=== PATIENT | male | born 1990 | race Caucasian/White ===

== ENCOUNTER 2020-07-09 05:49 | Outpatient (RCR) | payer OTHER ==
[~2020-07-09] VITALS: Ht 175.3 cm; Wt 81.8 kg
[2020-07-09] MEDS ORDERED: VILA20TA PO (14:40)
[2020-07-09] MEDS ORDERED: OMEP20TA7 PO (14:40)
[2020-07-09] MEDS ORDERED: VILA40TA PO (14:40)
== END 2020-07-09 14:43 | disposition home or self-care (01) ==
LOC: PREOP 05:49
PROVIDERS: ATTEND Otolaryngology Otolaryngology/Facial Plastic Surgery
DX: Z01.818 Encounter for other preprocedural examination (principal)

== ENCOUNTER 2020-07-17 06:47 | Day surgery (SDC) | payer OTHER ==
[~2020-07-17] VITALS: Ht 175.3 cm; Wt 81.8 kg
[2020-07-17] VITALS (10 sets, daily range): BP systolic 116–149; BP diastolic 73–100
[~2020-07-17 06:47] MED LIST: GLYCOPYRROLATE 0.2 MG/ML (ROBINUL) 2 ML VIAL ONE; LIDOCAINE PF 2% 5 ML (XYLOCAINE) VIAL ONE; MIDAZOLAM 2 MG/2 ML (VERSED) VIAL ONE; NEOSTIGMINE 3 MG/3 ML VIAL ONE; OMEP20TA7 PO; ONDANSETRON 4 MG/2 ML (SDV) Z0FRAN ONE; SEVOFLURANE (ULTANE) 15 ML INHAL SOLN ONE; VILA20TA PO; VILA40TA PO; fentaNYL INJECTION 100 MCG/2 ML AMP ONE; proPOfol 200 MG/20 ML (DIPRIVAN) VIAL IV ONE
[2020-07-17] MEDS ORDERED: COCAINE HCL 4% 2 ML SYR ONE (06:55)
[2020-07-17] MEDS ORDERED: NS IV 500 ML 500 ML ONE (06:56)
[2020-07-17] MEDS ORDERED: PHENYLEPHRINE 0.5% NASAL SPR (NEO-SYNEPHRINE) REG ONE (06:56)
[2020-07-17] MEDS ORDERED: BSS 15 ML ONE (06:56)
[2020-07-17] MEDS ORDERED: LIDOCAINE/EPI 1%-1:100,000 (XYLOCAINE) 20ML ONE (06:56)
[2020-07-17] MEDS ORDERED: AMPICILLIN/SULBACTAM INJECTION 1.5 GM in NS (IVPB) 100 ML IV ONE (07:00)
[2020-07-17] MEDS ORDERED: HYDROCORTISONE 100 MG/2 ML (Solu-CORTEF) VIAL IV ONE (07:00)
--- NOTE | 2020-07-17 07:04 | Progress Note-Pre Operative ---
Pre-Operative Progress Note H&P Reviewed The H&P was reviewed, patient examined and no changes noted. Date Seen by Provider: Jul 17, 2020 Time Seen by Provider: 06:30 Date H&P Reviewed: Jul 17, 2020 Time H&P Reviewed: 06:30 Pre-Operative Diagnosis: Bilat Chronic Sinusitis, Deviated Septum, Bilat Hyper of Inf Turbs NESSA PATTERSON MD Jul 17, 2020 07:04
[2020-07-17] MEDS: LACTATED RINGERS 1,000 ML IV PRN ×2 (07:13→08:23)
[2020-07-17] MEDS ORDERED: ROCURONIUM 10 MG/ML 5 ML SYRINGE IV ONE (09:00)
[2020-07-17] MEDS ORDERED: SEVOFLURANE (ULTANE) 15 ML INHAL SOLN ONE ×6 (09:01)
--- NOTE | 2020-07-17 09:05 | Progress Note-Post Operative ---
Post-Operative Progess Note Surgeon (s)/On Car Supervisor (s) Surgeon NESSA PATTERSON MD On Car Supervisor n/a Pre-Operative Diagnosis Bilat Chronic Sinusitis, Deviated Septum, Bilat Hyper of Inf Turbs Post-Operative Diagnosis same Post-Op Procedure Note Date of Procedure: Jul 17, 2020 Name of Procedure Performed: Bilat ESS, Nasal Septoplsty, Bilat Red of Inf Turbs Description & Findings Description and Findings: n/a Anesthesia Type get Estimated Blood Loss minimal Packing DNP bilat Specimen(s) collected/removed nasal septum, bilat chornic sinus disease NESSA PATTERSON MD Jul 17, 2020 09:04
[2020-07-17] MEDS ORDERED: ACETAMINOPHEN 325 MG TABLET PO PRN (09:15)
[2020-07-17] MEDS ORDERED: PROMETHAZINE INJ 25 MG/ML (PHENERGAN) AMP IVP PRN (09:15)
[2020-07-17] MEDS ORDERED: predniSONE 20 MG TAB PO ONE (09:15)
[2020-07-17] MEDS ORDERED: HYDROcodone/APAP 5 MG/325 MG (LORTAB) TAB PO PRN (09:15)
[2020-07-17] MEDS ORDERED: D5 1/2 NS W/KCL 20 MEQ/L 1,000 ML IV SCH (09:15)
[2020-07-17] MEDS ORDERED: morphine INJ 10 MG/ML 1ML (SYR OR VIAL) IVP ONE (09:30)
[2020-07-17] MEDS ORDERED: HYDROmorphone 2 MG/ML VIAL (DILAUDID) IV ONE (09:30)
[2020-07-17] MEDS ORDERED: ONDANSETRON 4 MG/2 ML (SDV) Z0FRAN IVP PRN (09:30)
[2020-07-17] MEDS ORDERED: PRD20T PO (10:11)
[2020-07-17] MEDS ORDERED: AMOX500T2 PO (10:11)
[2020-07-17] MEDS ORDERED: ACHD5005 PO (10:11)
[2020-07-17] MEDS ORDERED: HYDROcodone/APAP 5 MG/325 MG (LORTAB) TAB ONE (10:29)
[2020-07-17] MEDS ORDERED: predniSONE 20 MG TAB ONE (10:29)
--- NOTE | 2020-07-17 14:47 | Anesthesia-General Post-Op ---
General Patient Condition Mental Status/LOC: Same as Preop Cardiovascular: Satisfactory Nausea/Vomiting: Absent Respiratory: Satisfactory Pain: Controlled Complications: Absent Post Op Complications Complications None Follow Up Care/Instructions Patient Instructions None needed. Anesthesia/Patient Condition Patient Condition Patient is doing well, no complaints, stable vital signs, no apparent adverse anesthesia problems. No complications reported per nursing. MICHELET LOYD CRNA Jul 17, 2020 14:47
== END 2020-07-17 10:50 | disposition home or self-care (01) ==
LOC: SDC 06:47
PROVIDERS: ATTEND Otolaryngology Otolaryngology/Facial Plastic Surgery
DX: J32.9 Chronic sinusitis, unspecified (principal); J34.2 Deviated nasal septum; J34.3 Hypertrophy of nasal turbinates; R09.81 Nasal congestion; J34.89 Other specified disorders of nose and nasal sinuses; F41.9 Anxiety disorder, unspecified; K21.9 Gastro-esophageal reflux disease without esophagitis; Z79.899 Other long term (current) drug therapy; Z88.2 Allergy status to sulfonamides; Z88.1 Allergy status to other antibiotic agents; Z83.3 Family history of diabetes mellitus; Z80.9 Family history of malignant neoplasm, unspecified; Z82.3 Family history of stroke; Z82.49 Family history of ischemic heart disease and other diseases of the circulatory system
CPT/HCPCS: 87081; 88305; 88311